=== PATIENT | male | born 2000 | race African-American/Black ===

== ENCOUNTER 2024-02-27 13:34 | Emergency (ER) | payer OTHER ==
[~2024-02-27] VITALS: Ht 167.6 cm; Wt 84.5 kg
[2024-02-27] MEDS: DERMABOND TOPICAL SKIN ADHESIVE TOP ONE (14:15)
[2024-02-27 14:53] VITALS: BP 137/85; TEMP 99.3; O2SAT 99
== END 2024-02-27 14:54 | disposition home or self-care (01) ==
LOC: M ED 13:34
DX: S61.412A Laceration without foreign body of left hand, initial encounter (principal); X58.XXXA Exposure to other specified factors, initial encounter; Y92.009 Unspecified place in unspecified non-institutional (private) residence as the place of occurrence of the external cause; Y93.89 Activity, other specified; Y99.9 Unspecified external cause status; F17.290 Nicotine dependence, other tobacco product, uncomplicated

== ENCOUNTER 2024-07-31 14:08 | Emergency (ER) | payer OTHER ==
[~2024-07-31] VITALS: Ht 170.2 cm; Wt 98.8 kg
[2024-07-31] MEDS: METOCLOPRAMIDE INJ 10MG/2ML VIAL IV ONE (17:41)
[2024-07-31] MEDS: NS (Normal Saline) 0.9% 1,000 ML IV ONE (17:42)
[2024-07-31] MEDS: diphenhydrAMINE 50MG/ML VIAL IV ONE (17:42)
[2024-07-31 17:54] LABS: BASO # 0.1 10^3/uL (0.0-0.2); BASO % 0.9 % (0.0-1.0); EOS # 0.1 10^3/uL (0.0-0.5); EOS % 1.3 % (0.0-3.0); HEMATOCRIT 44.5 % (42.0-52.0); HEMOGLOBIN 15.2 g/dl (13.5-17.5); LYMPH # 2.6 10^3/uL (1.5-5.0); LYMPH % 37.3 % (24.0-44.0); MEAN CORPUSCULAR HEMOGLOBIN 27.2 pg (27.0-33.0); MEAN CORPUSCULAR HGB CONC 34.2 g/dl (32.0-36.5); MEAN CORPUSCULAR VOLUME 79.7 fl (80.0-96.0); MONO # 0.7 10^3/uL (0.0-0.8); MONO % 10.1 % (2.0-8.0); NEUTROPHILS # 3.5 10^3/uL (1.5-8.5); NEUTROPHILS % 50.1 % (36.0-66.0); PLATELET COUNT, AUTOMATED 305 10^3/uL (150-450); RED BLOOD COUNT 5.58 10^6/uL (4.30-6.10); WHITE BLOOD COUNT 7.1 10^3/uL (4.0-10.0)
[2024-07-31] MEDS: KETOROLAC 30 MG/ML 1ML VIAL IV ONE (18:14)
[2024-07-31 18:18] LABS: ETHYL ALCOHOL (ETHANOL) 0.005 % (0.000-0.010)
[2024-07-31 18:20] LABS: ALKALINE PHOSPHATASE 73 U/L (40-129); ALT/SGPT 54 U/L (7.0-40); AST/SGOT 56 U/L (<34); BILIRUBIN,DIRECT 0.1 MG/DL (<0.4); BILIRUBIN,TOTAL 0.3 MG/DL (0.3-1.2); BLOOD UREA NITROGEN 11 MG/DL (9-23); CALCIUM LEVEL 9.4 MG/DL (8.5-10.1); CARBON DIOXIDE LEVEL 26 MMOL/L (20-31); CHLORIDE LEVEL 103 MMOL/L (98-107); GLOMERULAR FILTRATION RATE > 60.0 (>60); GLUCOSE, FASTING 83 MG/DL (60-100); POTASSIUM SERUM 4.4 MMOL/L (3.5-5.1); SALICYLATE LEVEL < 3.0 MG/DL (<30); SODIUM LEVEL 138 MMOL/L (136-145); TOTAL PROTEIN 7.5 G/DL (5.7-8.2)
[2024-07-31 18:23] LABS: THYROID STIMULATING HORMONE 5.464 uIU/ML (0.55-4.78)
[2024-07-31] MEDS ORDERED: REGL10TA6 PO (18:37)
[2024-07-31 18:54] VITALS: BP 134/69; TEMP 97; O2SAT 100
== END 2024-07-31 19:20 | disposition home or self-care (01) ==
LOC: M ED 14:08
DX: J00 Acute nasopharyngitis [common cold] (principal); R51.9 Headache, unspecified
CPT/HCPCS: 70450; 80048; 80076; 80143; 82077; 82140; 84443; 85025; 87486; 87581; 87633; 87798; 96361; 96374; 96375; 99284; J1200; J1885; J2765